=== PATIENT | female | born 1955 | race Caucasian/White ===

== ENCOUNTER 2019-09-10 16:15 | Emergency (ER) | payer BC, SELFPAY ==
--- NOTE | ~2019-09-10 | XR_ITS ---
EXAMINATION: XR chest 2V DATE: 09/10/2019 16:59 INDICATION: Shortness of breath. Chest tightness and dizziness. TECHNIQUE: frontal and lateral views of the chest were obtained. COMPARISON: Chest radiograph dated 01/31/2005 FINDINGS: Elevation of the left hemidiaphragm. No focal airspace opacities, pulmonary edema, pleural effusion o r pneumothorax. Cardiomediastinal silhouette is normal. Chronic midthoracic compression fracture with 20% anterior vertebral body height loss. IMPRESSION: 1. No acute cardiopulmonary disease. Reviewed, dictated and finalized at location A.
[2019-09-10 16:20] VITALS: BP 130/71; PULSE 86; RESP 16; TEMP 36.7; O2SAT 100
--- NOTE | 2019-09-10 16:30 | PC.NURSE ---
During assessment patient stated that she Chest Tightness but denied that it was painful
--- NOTE | 2019-09-10 16:43 | ED.SOB ---
HPI - SOB/Dyspnea General Chief Complaint: Upper Respiratory Infection Stated Complaint: Shortness of breat/weezing Time Seen by Provider: 09/10/19 16:35 Source: patient and RN notes reviewed Mode of arrival: ambulatory Limitations: no limitations History of Present Illness HPI Narrative: Patient presents today complaining of dizziness, shortness of breath with mild productive cough, and complaining that, my lungs feel heavy. Yesterday, patient was at a wedding in a barn in [place] and states that shortness of breath symptoms and cough began at 0130 this morning and she believes this is related. She sat in a steamy shower and had hot wet towels on her chest last night and states this helped with symptoms slightly, enough that she was able to go back to sleep. Reports that every 1 to 2 years patient does experience symptoms similar to this, due to allergic asthma. She takes Claritin-D for her seasonal allergies. She denies any chest pain or abdominal pain. Denies fever or recent illness. Denies any cardiac history. Denies leg pain or swelling. MD elicited complaint: shortness of breath Related Data Home Medications Medication Instructions Recorded Confirmed Imitrex 09/10/19 lisinopril 09/10/19 Allergies Allergy/AdvReac Type Severity Reaction Status Date / Time Penicillins Allergy Mild UNSURE Verified 09/10/19 16:36 amoxicillin AdvReac Intermediate Nausea and Verified 09/10/19 16:36 Vomiting clavulanic acid AdvReac Intermediate Nausea and Verified 09/10/19 16:36 Vomiting etodolac AdvReac Intermediate Nausea and Verified 09/10/19 16:36 Vomiting Review of Systems Review of Systems: Narrative: CONSTITUTIONAL: Denies body aches, fever, chills, or sweats. EYES: Denies visual changes, redness, or discharge. ENT: Denies rhinorrhea, congestion, sore throat, or otalgia. CARDIOVASCULAR: Denies chest pain, palpitations, or edema. RESPIRATORY: + Shortness of breath, occasional productive cough, chest heaviness GASTROINTESTINAL: Denies abdominal pain, nausea, vomiting, or diarrhea. GENITOURINARY: Denies dysuria or hematuria. SKIN: Denies rash, itching, or wounds. MUSCULOSKELETAL: Denies back pain, joint pain, or myalgia. NEUROLOGIC: Denies headache, numbness, tingling, or weakness.+dizziness PSYCH: Denies depression or anxiety. PMFSH Social History Social History Gender identity (if verbalized by the patient): Female Comments At time of signature, I have reviewed and agree with nursing past medical, surgical, social and family history unless otherwise noted. Please see nursing chart for further information. There is no relevant family history pertinent to the presenting complaint Exam Narrative: Exam Narrative: GENERAL: Mildly ill-appearing, well-nourished. HEAD: Normocephalic, atraumatic. EYES: EOMI. No redness or drainage. Conjunctivae normal. ENT: Mucous membranes pink and moist. NECK: Normal AROM. Supple. No lymphadenopathy. CHEST: Obviously short of breath. Diminished in bilateral bases, but no wheezing or rhonchi noted. Cannot speak in complete sentences. Chest is nontender. HEART: Regular rate and rhythm. No murmur appreciated. Normal peripheral pulses. ABDOMEN: Soft, nontender, nondistended, normal active bowel sounds. MUSCULOSKELETAL: No bony tenderness. EXTREMITIES: Normal range of motion. No edema. SKIN: Warm, dry, no rash. Capillary refill normal. Normal skin turgor. NEURO: No focal deficits. Alert and oriented x3. Gait steady. PSYCH: Normal affect. No signs of depression or anxiety. Course Course Emergency Course: Patient refuses transfer to the ER and will sign out AMA. She is AOx4, does not seem impaired or intoxicated and she is able to make her own medical decisions. I did discuss importance of ER transfer for further evaluation of her current symptoms. States she would like to discuss with and call her PCP for advice. Vital Signs Vital signs: Vital Signs
--- NOTE | 2019-09-10 16:50 | ECG_ITS ---
Measurements Intervals [place] Rate: 78 P: 42 UT: 169 QRS: 3 QRSD: 94 T: 34 QT: 396 QTc: 454 Interpretive Statements SINUS RHYTHM NORMAL ECG Electronically Signed On 09-11-2019 7:35:58 CDT by Michael Lehman D.O.
== END 2019-09-10 17:17 | disposition left against medical advice (07) ==
PROVIDERS: Emergency Provider Nurse Practitioner; PCP Internal Medicine Infectious Disease
DX: R06.02 Shortness of breath (principal); R42 Dizziness and giddiness
CPT/HCPCS: 71046; 93005; 99203; G0463

== ENCOUNTER 2021-07-13 10:16 | Emergency (ER) | payer OTHER, SELFPAY ==
[2021-07-13 10:25] VITALS: BP 162/80; PULSE 80; RESP 16; TEMP 36.4; O2SAT 100
--- NOTE | 2021-07-13 10:40 | ED.DENTAL ---
HPI - Dental/Oral General Chief complaint: Dental/Oral Stated complaint: Right Jaw pain Time Seen by Provider: 07/13/21 10:41 Source: patient Mode of arrival: ambulatory Limitations: no limitations History of Present Illness HPI Narrative: Annabel Hatch is a 66 yo female with PMH of HTN, migraines, who comes with R jaw swelling x -3 days with pain in jaw- unsure if dental Location: Tooth # (30) Related Data Home Medications Medication Instructions Recorded Confirmed Imitrex 09/10/19 lisinopril 09/10/19 Allergies Allergy/AdvReac Type Severity Reaction Status Date / Time Penicillins Allergy Mild UNSURE Verified 09/10/19 16:36 amoxicillin AdvReac Intermediate Nausea and Verified 09/10/19 16:36 Vomiting clavulanic acid AdvReac Intermediate Nausea and Verified 09/10/19 16:36 Vomiting etodolac AdvReac Intermediate Nausea and Verified 09/10/19 16:36 Vomiting Review of Systems Review of Systems: CONSTITUTIONAL: Denies fever, chills, sweats. EYES: Denies visual changes, redness, discharge. ENT: Denies rhinorrhea, congestion, sore throat, otalgia. CARDIOVASCULAR: Denies chest pain, palpitations, edema. Mouth: Right jaw swelling with pain in the is not clearly localized RESPIRATORY: Denies dyspnea, wheezing, cough GASTROINTESTINAL: Denies abdominal pain, nausea, vomiting, diarrhea. GENITOURINARY: Denies dysuria, hematuria, abnormal discharge SKIN: Denies rash or itching. NEUROLOGIC: Denies numbness, or focal weakness. PSYCHIATRIC: Denies anxiety or depression. PMFSH Past Medical History Medical History HTN (hypertension) Migraine Social History Social History (Updated 07/13/21 @ 10:48 by Emilie Cazares CNP) Smoking status: Former smoker Alcohol intake: current Gender identity (if verbalized by the patient): Female Comments At time of signature, I agree with nursing past medical, surgical, social and family history. There is no relevant family history pertinent to the presenting complaint. Exam Narrative: GENERAL: This is a well-nourished, well-developed patient, in moderate distress. HEAD: normocephalic, atraumatic. EYES: Sclera clear/white. Vision is grossly intact. EARS: External ears normal. Hearing grossly intact. NOSE: External nose normal without nasal discharge, nares without redness, no rhinorrhea. THROAT: Mucous membranes moist, posterior pharynx pink; fair amount of swelling on the right cheek when examined by palpation pain appears to be around tooth 30 NECK: Neck supple, non-tender CARDIOVASCULAR: Regular rate and rhythm without murmurs, gallops, or rubs. RESPIRATORY: Clear to auscultation. Breath sounds equal bilaterally. No wheezes, rales, or rhonchi. GASTROINTESTINAL: Abdomen soft, non-tender, SKIN: warm, intact with no suspicious lesions or rash, good texture and turgor. NEURO: awake, alert, and oriented to person, place and time. There were no obvious focal neurologic abnormalities. Steady gait EXTREMITIES: Normal range of motion. BACK: Nontender without deformity Course Course Emergency Course: Patient comes with facial swelling and pain to right jaw Started on Pen-Vee K, steroids, Tylenol 3- Level of Care: Express Care Visit Vital Signs Vital signs: Vital Signs Temperature 97.5 F L 07/13/21 10:25 Pulse Rate 80 07/13/21 10:25 Respiratory Rate 16 07/13/21 10:25 Blood Pressure 162/80 H 07/13/21 10:25 Pulse Oximetry 100 07/13/21 10:25 Temperature 97.5 F L 07/13/21 10:25 Pulse Rate 80 07/13/21 10:25 Respiratory Rate 16 07/13/21 10:25 Blood Pressure 162/80 H 07/13/21 10:25 Pulse Oximetry 100 07/13/21 10:25 MDM - Dental/Oral Differential Diagnosis Differential diagnosis: Likely dental caries, toothache and dental abscess Critical Care Time Critical Care Time Critical Care Time: No Discharge Plan Discharge Clinical Impression: Jaw swelling, Dental abscess
== END 2021-07-13 11:02 | disposition home or self-care (01) ==
PROVIDERS: Emergency Provider Nurse Practitioner; PCP Internal Medicine Infectious Disease
DX: K04.7 Periapical abscess without sinus (principal); I10 Essential (primary) hypertension; Z87.891 Personal history of nicotine dependence
CPT/HCPCS: 99213; G0463

== ENCOUNTER 2021-11-18 16:29 | Outpatient (CLI) | payer OTHER, SELFPAY ==
--- NOTE | ~2021-11-18 | MR_ITS ---
EXAMINATION: MR shoulder LT wo con DATE: 11/18/2021 17:12 INDICATION: Left shoulder pain. TECHNIQUE: Magnetic resonance imaging (MRI) of the left shoulder was performed without intravenous co ntrast. Sequences included axial PD-weighted FS FSE, coronal oblique PD-weighted FS FSE and T2-weight ed FS FSE, and sagittal oblique T2-weighted FS FSE and T1-weighted FSE. COMPARISON: None. FINDINGS: Coracoacromial arch: The acromion undersurface is curved in morphology (type II). There is moderate acromioclavicular join t osteoarthritis including inferiorly directed osteophytes. There is mild subacromial/subdeltoid burs itis. Rotator cuff: There is mild supraspinatus tendinopathy. Infraspinatus and teres minor tendon is normal. There is mi ld subscapularis tendinopathy. No tear. There is no asymmetric fatty atrophy of the rotator cuff musc le bellies. Biceps tendon and glenoid labrum: Biceps tendon is in bicipital groove. Intra-articular biceps tendon is normal. The glenoid labrum is normal. Fluid: There is a small glenohumeral joint effusion. Bones/cartilage: There is partial-thickness cartilage loss of glenoid and humeral head. There is a subchondral cyst in superior glenoid. IMPRESSION: 1. Mild glenohumeral joint chondrosis. 2. Mild rotator cuff tendinopathy. No tear. 3. Moderate acromioclavicular joint osteoarthritis. 4. Small glenohumeral joint effusion. 5. Mild subacromial/subdeltoid bursitis. Reviewed, dictated and finalized at location A.
== END 2021-11-18 16:30 | disposition home or self-care (01) ==
PROVIDERS: PCP Internal Medicine Infectious Disease; Visit Provider Orthopaedic Surgery
DX: M19.012 Primary osteoarthritis, left shoulder (principal); M75.52 Bursitis of left shoulder; M25.412 Effusion, left shoulder
CPT/HCPCS: 73221

== ENCOUNTER 2021-12-08 01:03 | Day surgery (SDC) | payer OTHER, SELFPAY ==
--- NOTE | 2021-12-03 12:57 | PC.NURSE ---
Report to the Outpatient Waiting Room, entrance under the green pavilion located off [facility], at time 1000 on date __12/08/21 . OR Time: _1200 . - You and your visitor will be asked to self-screen and do not enter if you have any COVID symptoms. - Only one visitor and NO children visitors are allowed at this time. - The patient visitor is requested to leave or wait in car when not with patient due to restrictions. - A mask is required within the hospital. Patients may have clear liquids (water, carbonated beverages, clear teas, apple juice) until 3 hours prior to surgery with a maximum of 20 ounces. - No food from midnight until time of surgery - Infants may have breast milk until 4 hours before surgery, infant formula 6 hours prior to surgery. - Children will be allowed to drink immediately following surgery. If applicable, please bring a bottle or sippy cup to assist with drinking. Juice, water, soda, and popsicles are readily available. For infants on formula, please bring formula the day of surgery. Pacifiers are allowed. Take the following medications with a SIP of water the morning of surgery: NONE Medications to discontinue per physician NAPROXEN 7 DAYS PRE OP/ ALL VITAMINS AND SUPPLEMENTS 3 DAYS PRE OP Date to take last dose__11/30/21 NAPROXEN VIT AND SUPP 12/04/21 Please no make-up, nail estonian, hairspray, perfume, deodorant, or body powder the day of surgery. No jewelry (including any body piercings) or valuables the day of surgery, leave them at home. Please take a shower or bath the night before, or the morning of, surgery with an antibacterial soap. Wear comfortable, loose fitting clothing. Children are encouraged to wear pajamas. - Jewelry must be removed prior to entering the operating room. Rings and piercings that are not removed may be cut off. - The hospital will not accept responsibility for valuables. - Please leave all valuables, including medications, at home the day of surgery. If you are going home after surgery, a licensed bulk truck driver must drive you home. - NO public transportation without another adult. - We recommend that an adult stay with you for 24 hours following discharge. - We also recommend that you do not drive, make important decision, drink alcoholic beverages, or take any drugs that were not prescribed by your health care provider for at least 24 hours after your discharge time. For Pediatric surgeries, we recommend two adults accompany the child home (only one inside the building at this time). Follow any additional instructions given to you from your surgeon. If you or anyone in your household have experienced Covid symptoms in the past week, please notify your surgeon or the nurse liaison at the phone number below for possible testing. Telephone instructions given to ___PATIENT and asked if any additional questions and then verbalized understanding. Patient advised to call surgeon office or pre surgery nurse liaison [phone] if any additional questions.
[2021-12-03 13:05] VITALS: BMI 31.1
[2021-12-08] VITALS (10 sets, daily range): BP systolic 130–160; BP diastolic 67–99; PULSE 65–91; RESP 14–20; TEMP 36.1–36.7; O2SAT 96–100
--- NOTE | 2021-12-08 10:27 | WPDHPUPDATE1 ---
History and Physical Update Update Date/Time: 12/08/21 10:27 History and Physical has been reviewed, including an updated exam of the patient. There are NO changes in the patient's condition. Risks, benefits, and alternatives have been discussed and questions answered. Patient agrees to proceed with procedure.
--- NOTE | 2021-12-08 10:49 | P.PNAN_ITS ---
Anes - Initial Pre Proc Eval Procedure: Operation Date: 12/08/21 12:00 Proposed Procedures p Left Shoulder Arthroscopic Subacromial Decompression - Amaury Khan MD Date/Time: 12/08/21 10:49 Surgeon: Amaury Khan MD Pre Op Diagnosis: Impingement Syndrome Lt Shoulder Patient Data Age: 66 Gender: F Height: 1.68 m Weight: 87.55 kg Allergies Allergy/AdvReac Type Severity Reaction Status Date / Time Penicillins Allergy Mild UNSURE Verified 12/03/21 12:34 amoxicillin AdvReac Intermediate Nausea and Verified 12/03/21 12:34 Vomiting clavulanic acid AdvReac Intermediate Nausea and Verified 12/03/21 12:34 Vomiting etodolac AdvReac Intermediate Hives Verified 12/03/21 12:35 Home Medications Medication Instructions Recorded Confirmed Type Imitrex 100 mg PO PRN PRN Migraine Headache 09/10/19 12/03/21 History lisinopril 30 mg PO DAILY 09/10/19 12/03/21 History triamterene 37.5 1 tablet PO PRN PRN SWELLING 09/10/21 12/03/21 History mg-hydrochlorothiazide 25 mg tablet biotin 5,000 mcg disintegrating 5,000 mcg PO DAILY 12/03/21 12/03/21 History tablet desloratadine-pseudoephedrine ER 1 tablet PO Q12H PRN Allergy 12/03/21 12/03/21 History 2.5 mg-120 mg tab,ext.release mp Symptoms 12hr (Clarinex-D 12 HOUR) magnesium 500 mg tablet 500 mg PO DAILY 12/03/21 12/03/21 History naproxen 500 mg tablet 500 mg PO PRN PRN Pain 12/03/21 12/03/21 History Patient hx anesthesia problems: post op nausea/vomiting Family hx anesthesia problems: none Results Review: All pre-operative results and documents have been reviewed as part of the pre- operative evaluation. [facility] Past Medical History Medical History Arthritis Asthma History of stress test (~07/2014) HTN (hypertension) Migraine Surgical History Surgical History History of carpal tunnel surgery of left wrist (~2019) History of carpal tunnel surgery of right wrist (~2018) History of knee surgery (~06/18/08) Patella ellrgraph History of partial hysterectomy Social History Social History Years smoked: 35 Smoking status: Former smoker Tobacco type: cigarettes Smoking end date: 04/12/09 Alcohol intake: current Living arrangements: with family Gender identity (if verbalized by the patient): Female Spiritual care concerns: No Anes - Eval Final PreProcedure Day of Procedure 12/08/21 10:49 Patient weight: obese Heart: regular rate and rhythm Lungs: decreased breath sounds Airway: Mallampati scale class II Neurological: alert and oriented Last oral intake: >/= 8 hours ASA classification: III Emergent: no Anesthetic plan: proceed Anesthesia type and monitoring: general ETT and standard monitoring Results Review: All pre-operative results and documents have been reviewed as part of the pre- operative evaluation. Informed Consent: The patient's anesthetic plan and its attendant risks and benefits were discussed with the patient/family/POA. Questions were solicited and answers provided to the satisfaction of the patient/family/POA.
[2021-12-08] MEDS: ACETAMINOPHEN 500 MG TABLET 1000 MG PO (11:00)
[2021-12-08] MEDS: LACTATED RINGERS 1,000 ML 30 ML IV CONT ×2 (11:08→13:48)
[2021-12-08] MEDS: SCOPOLAMINE 1.5 MG PATCH TRANSDERM (11:22)
[2021-12-08] MEDS: ceFAZolin 2 GM/D5W 50 ML 2 GM/50 ML BAG IVPB (12:15)
[2021-12-08] MEDS: BUPIVACAINE/EPINEPHRINE 0.25% 50 ML VIAL 30 ML INFILTRATE (12:59)
[2021-12-08] MEDS: fentaNYL CITRATE INJ (*CRX) 100 MCG/2 ML VIAL 25 MCG IV PUSH ×2 (14:23→14:36)
--- NOTE | 2021-12-08 14:25 | P.OP_ITS ---
Procedure Note - Detailed Date of Procedure 12/08/21 Pre-op Diagnosis Impingement Syndrome Lt Shoulder Post-op Diagnosis Other (1. Impingement syndrome left shoulder 2. Degenerative SLAP lesion ) Procedure Performed Left shoulder 1. Arthroscopic superior labral debridement 2. Arthroscopic subacromial decompression Surgeon Amaury Khan MD Sewing Machine Mechanic Karlene Arciniega PA-C Anesthesia General and Regional ( interscalene block) Findings Significant natural laxity of the joint capsule. Subacromial impingement findings without rotator cuff tear. Subtle fraying at the superior humerus and superolateral labrum suggests internal impingement. The biceps anchor itself and biceps tendon appeared very healthy and stable. Description of Procedure Preoperative antibiotics were given. An interscalene block was administered in the preoperative area. The patient was bought brought to the operating room. A general anesthetic was administered. The patient was carefully positioned in the beach chair position. The head and neck were carefully positioned. The non operative extremity was also carefully positioned. The shoulder was prepped and draped in the usual sterile fashion. Examination was performed. The shoulder felt quite loose. Not grossly unstable. Posterior and anterior arthroscopic portals were established. Inflow achieved with the arthroscopic pump using saline and epinephrine. The glenohumeral joint was carefully inspected. The capsule was slightly patulous. Cartilage appeared normal except for mild scuffing superiorly on the humerus. There was significant fraying of the superior anterior labrum and SLAP area. The labral attachment and biceps were otherwise healthy. The labrum was debrided carefully with the arthroscopic shaver. The radiofrequency probe was also used to stabilize the tissue. The subscapularis was normal. Articular rotator cuff appeared normal. Attention was turned to the subacromial space. A complete bursectomy was performed. The rotator cuff appeared slightly scuffed. The bursa was a bit thickened and there was impingement evidence on the undersurface of the acromion with some frayed tissue there and at the CA ligament. The cuff was otherwise very healthy. Acromioplasty was performed with the arthroscopic bur. Care was taken to assess the flatness and adequate acromioplasty from both the posterior and lateral portal. The arthroscopic instruments were removed. The wounds were closed with 3-0 Monocryl subcuticular suture and steri strips. There were no complications. A sling was applied and the patient brought to the recovery room. Physician social service assistant, Karlene Arciniega PA-C, required for surgery; including patient positioning, draping, arthroscopic camera operation, maintaining instrument position, wound closure, and dressing and sling placement. Estimated Blood Loss -10.0 Pathology None sent Complications No immediate complications Condition Stable Disposition PACU [facility] Billing Surgery - Charge Forward: Surgery Billing
[2021-12-08] MEDS: oxyCODONE HCL (*CRX) 5 MG TAB IR PO (15:48)
[2021-12-08] MEDS: ONDANSETRON HCL ODT 4 MG TABLET PO (16:36)
== END 2021-12-08 17:10 | disposition home or self-care (01) ==
PROVIDERS: PCP Internal Medicine Infectious Disease; Visit Provider Orthopaedic Surgery
PROC: (CPT 29805; principal; 2021-12-08 12:00)
DX: M75.42 Impingement syndrome of left shoulder (principal); M75.82 Other shoulder lesions, left shoulder; I10 Essential (primary) hypertension; M19.90 Unspecified osteoarthritis, unspecified site; Z87.891 Personal history of nicotine dependence; E66.9 Obesity, unspecified; Z68.30 Body mass index [BMI] 30.0-30.9, adult
CPT/HCPCS: 29822; A9270; J0690; J1100; J2250; J2405; J2704; J3010; J7120

== ENCOUNTER 2023-08-16 14:22 | Outpatient (CLI) | payer MEDICARE, SELFPAY ==
--- NOTE | ~2023-08-16 | XR_ITS ---
EXAM: XR knee RT min 4V DATE: 08/16/2023 14:44 HISTORY: M25.561 - Pain in right knee NON INJ . COMPARISON: None available. FINDINGS: Decreased mineralization. No fracture or dislocation. No lytic or blastic lesion. Status p ost ACL repair. Moderate medial joint space narrowing. Severe lateral joint space narrowing during we ightbearing. Mild tricompartmental osteophytosis. Moderate volume joint fluid. No erosion or perioste al change. Soft tissues within normal limits. IMPRESSION: Osteopenia. Tricompartmental osteoarthritis, severe in the lateral compartment. Moderate joint effusion. Reviewed, dictated and finalized at location K.
== END 2023-08-16 14:23 | disposition home or self-care (01) ==
LOC: ANHIMG 14:26
PROVIDERS: PCP Internal Medicine Infectious Disease; Visit Provider Physician Assistant Surgical
DX: M85.861 Other specified disorders of bone density and structure, right lower leg (principal); M17.11 Unilateral primary osteoarthritis, right knee; M25.461 Effusion, right knee
CPT/HCPCS: 73564

== ENCOUNTER 2023-11-08 11:33 | Outpatient (CLI) | payer MEDICARE, SELFPAY ==
--- NOTE | 2023-11-08 11:57 | ECG_ITS ---
Test Date: 2023-11-08 12:10:17 Measurements Intervals [place] Rate: 77 P: 30 MI: 170 QRS: -28 QRSD: 138 T: 15 QT: 404 QTc: 459 Interpretive Statements SINUS RHYTHM RIGHT BUNDLE BRANCH BLOCK INFERIOR INFARCT, AGE INDETERMINATE ABNORMAL ECG No previous ECG available for comparison Electronically Signed On 11-08-2023 12:52:48 CDT by Michael Lehman D.O.
[2023-11-08 12:00] LABS: Hematocrit 44.1 % (37.0-47.0)
[2023-11-08 12:21] LABS: Albumin Level 4.5 g/dL (3.5-5.1); Estimated Glomerular Filt Rate > 60
== END 2023-11-08 11:34 | disposition home or self-care (01) ==
PROVIDERS: PCP Internal Medicine Infectious Disease; Visit Provider Orthopaedic Surgery
DX: Z01.818 Encounter for other preprocedural examination (principal); M17.11 Unilateral primary osteoarthritis, right knee; I10 Essential (primary) hypertension; I45.10 Unspecified right bundle-branch block; R94.31 Abnormal electrocardiogram [ECG] [EKG]
CPT/HCPCS: 36415; 82040; 82565; 85014; 85018; 93005

== ENCOUNTER 2023-11-23 14:27 | Outpatient (CLI) | payer MEDICARE, SELFPAY ==
--- NOTE | ~2023-11-23 | XR_ITS ---
EXAM: XR knee RT min 4V DATE: 11/23/2023 14:52 HISTORY: CHRONICRT KNEE PAIN, HX SUREGRY, HX FRACTURE X 3-4 YEARS AGO . COMPARISON: 08/16/2023. FINDINGS: Decreased mineralization. No fracture or dislocation. No lytic or blastic lesion. Mild med ial and severe lateral joint space narrowing. Mild tricompartmental osteophytosis. Moderate volume nancy int fluid. Status post ACL repair. No erosion or periosteal change. Soft tissues within normal limits . IMPRESSION: Osteopenia. Tricompartmental right knee osteoarthritis, severe in the lateral compartment . Moderate right knee joint effusion. Reviewed, dictated and finalized at location K. IMPRESSION: Osteopenia. Tricompartmental right knee osteoarthritis, severe in t he lateral compartment. Moderate right knee joint effusion.
== END 2023-11-23 14:28 | disposition home or self-care (01) ==
PROVIDERS: PCP Internal Medicine Infectious Disease; Visit Provider Orthopaedic Surgery
DX: M17.11 Unilateral primary osteoarthritis, right knee (principal); M85.861 Other specified disorders of bone density and structure, right lower leg
CPT/HCPCS: 73564

== ENCOUNTER 2024-01-05 09:33 | Outpatient (CLI) | payer MEDICARE, SELFPAY ==
[2024-01-05 12:04] LABS: Basophils Percent Auto 0.6 % (0.2-1.2); Eosinophils Absolute Auto 0.2 K/mm3 (0-0.3); Eosinophils Percent Auto 2.8 % (0-4.4); Hemoglobin 14.3 g/dL (12.0-15.0); Immature Granulocyte Absolute 0.02 K/mm3 (0.00-0.031); Immature Granulocyte Percent A 0.3 % (0-0.5); Lymphocytes Absolute Auto 1.35 K/mm3 (0.9-3.2); Lymphocytes Percent Auto 19.2 % (18.3-44.2); Mean Corpuscular Hemoglobin 30.2 pg (26-34); Mean Corpuscular Volume 88.8 fl (80-100); Mean Platelet Volume 11.7 fl (7.4-10.4); Monocytes Absolute Auto 0.6 K/mm3 (0.1-0.6); Monocytes Percent Auto 8.5 % (2.6-8.5); Neutrophils Absolute Auto 4.8 K/mm3 (1.3-6.7); Neutrophils Percent Auto 68.6 % (45.5-73.1); Platelet Count Result 219 k/mm3 (150-375); Red Blood Count 4.73 M/mm3 (4.2-5.4); Red Cell Distribution Width 13.1 % (11.5-14.5)
[2024-01-05 12:11] LABS: Albumin Level 4.3 g/dL (3.5-5.1)
[2024-01-05 12:14] LABS: Anion Gap 8 mmol/L (4-12); Blood Urea Nitrogen 18 mg/dL (7-17); Calcium 9.2 mg/dL (8.4-10.2); Carbon Dioxide 27 mmol/L (22-30); Chloride 102 mmol/L (98-107); Estimated Glomerular Filt Rate > 60; Glucose 112 mg/dL (65-110); Potassium 4.5 mmol/L (3.4-5.0); Sodium 137 mmol/L (137-145)
[2024-01-05 12:21] LABS: Urine Cotinine NEGATIVE
[2024-01-05 13:19] LABS: Hemoglobin A1C 6.1 % (<5.7); MRSA (PCR) NOT DETECTED (NOT DETECTE)
== END 2024-01-05 09:34 | disposition home or self-care (01) ==
LOC: ANHSURGERY 09:37
PROVIDERS: Anesthesiology; PCP Internal Medicine Infectious Disease; Visit Provider Orthopaedic Surgery
DX: Z01.818 Encounter for other preprocedural examination (principal); M17.11 Unilateral primary osteoarthritis, right knee; Z51.81 Encounter for therapeutic drug level monitoring
CPT/HCPCS: 36415; 80048; 80307; 82040; 83036; 85025; 87641

== ENCOUNTER 2024-01-31 01:35 | Day surgery (SDC) | payer MEDICARE, SELFPAY ==
--- NOTE | 2024-01-05 09:37 | PC.NURSE ---
Addendum entered by Tricia Nicholas RN 01/05/24 11:06: TYPO FOR DATE TO HOLD WEGOVY- SHOULD READ LAST DOSE 01/20/24. Original Note: Report to the Outpatient Waiting Room, entrance under the green pavilion located off [facility], at time ___10:00AM____ on date ___01/31/24____. Planned Procedure Time: ___12:00PM .? Time changes happen often and if your time is changed the preop area will call you the afternoon before. - You and your visitor will be asked to self-screen and do not enter if you have any COVID symptoms. Please call surgeon if you need to reschedule. - A mask is optional within the hospital at this time. Patients may have clear liquids (water, carbonated beverages, clear teas, apple juice) until 3 hours prior to surgery with a maximum of 20 ounces. - No food from midnight until time of surgery and no smoking. Take only the following medications with a SIP of water on the morning of surgery: NONE. (MAY USE ALBUTEROL INHALER NEEDED) DO NOT STOP ANY OF YOUR OTHER PRESCRIPTION MEDICATIONS PRIOR TO SURGERY EXCEPT THE FOLLOWING Medications to discontinue per physician ____HOLD ALL VITAMINS/SUPPLEMENTS 7 DAYS PRE-OP PER DR KRUEGER-LAST DOSE 01/23/24. HOLD WEGOVY FOR WEIGHT LOSS 10 DAYS PRE-OP PER ANESTHESIA- LAST DOSE . Please no make-up, nail chinese, hairspray, perfume, deodorant, or body powder the day of surgery.? No jewelry (including any body piercings) or valuables the day of surgery, leave them at home.? Please take a shower or bath the night before, or the morning of, surgery with an antibacterial soap.? Wear comfortable, loose fitting clothing.? - Jewelry must be removed prior to entering the operating room.? Rings and piercings that are not removed may be cut off. - The hospital will not accept responsibility for valuables.? - Please leave all valuables, including medications, at home the day of surgery. If you are going home after surgery, a licensed local owner operator truck driver must drive you home.? - NO public transportation without another adult if you receive anesthesia. - We recommend that an adult stay with you for 24 hours following discharge. - We also recommend that you do not drive, make important decision, drink alcoholic beverages, or take any drugs that were not prescribed by your health care provider for at least 24 hours after your discharge time. Follow any additional instructions given to you from your surgeon. Telephone instructions given to ___PATIENT and asked if any additional questions and then verbalized understanding. Patient advised to call surgeon office or pre surgery nurse liaison [phone] if any additional questions.
[2024-01-05 10:05] VITALS: BP 153/82; PULSE 78; RESP 16; TEMP 36.9; O2SAT 97; BMI 34.0
[2024-01-31] VITALS (13 sets, daily range): BP systolic 148–176; BP diastolic 69–99; PULSE 79–108; RESP 10–18; TEMP 35.9–36.8; O2SAT 93–100
--- NOTE | ~2024-01-31 | XR_ITS ---
EXAMINATION: [id number] DATE: 01/31/2024 15:00 CDT INDICATION: Right total knee arthroplasty TECHNIQUE: 2 views right knee FINDINGS: There is a right total knee arthroplasty in expected position. Subcutaneous gas with fluid and air in the joint are consistent with recent surgery. No evidence of periprosthetic fracture. IMPRESSION: 1. Recent right total knee arthroplasty. Reviewed, dictated and finalized at location B.
--- NOTE | 2024-01-31 09:31 | WPDHPUPDATE1 ---
History and Physical Update Update Date/Time: 01/31/24 09:31 History and Physical has been reviewed, including an updated exam of the patient. There are NO changes in the patient's condition. Risks, benefits, and alternatives have been discussed and questions answered. Patient agrees to proceed with procedure.
[2024-01-31] MEDS: ACETAMINOPHEN 500 MG TABLET 1000 MG PO (10:40)
[2024-01-31] MEDS: LACTATED RINGERS 1,000 ML 30 ML IV CONT ×2 (10:50→14:16)
[2024-01-31] MEDS: TRANEXAMIC ACID 1,000MG/ISO100 1,000 MG/100 ML BAG 200 MG IVPB (11:16)
--- NOTE | 2024-01-31 11:24 | WPDANESEPPF ---
Anes - Initial Pre Proc Eval Procedure: Operation Date: 01/31/24 12:00 Proposed Procedures p Right Total Knee Arthroplasty - Amaury Khan MD Date/Time: 01/31/24 11:24 Surgeon: Amaury Khan MD Pre Op Diagnosis: Prim OA Rt Knee Patient Data Age: 68 Gender: F Height: 1.66 m Weight: 91.9 kg Last Vital Signs Temp 97.4 F L 01/31/24 10:05 Pulse 79 01/31/24 10:05 Resp 18 01/31/24 10:05 BP 176/87 H 01/31/24 10:05 Pulse Ox 100 01/31/24 10:05 O2 Del Method Room Air 01/31/24 10:05 Allergies Allergy/AdvReac Type Severity Reaction Status Date / Time etodolac Allergy Intermediate Hives Verified 01/05/24 09:44 clavulanic acid AdvReac Intermediate Nausea and Verified 01/05/24 09:44 Vomiting Penicillins AdvReac Mild NAUSEA/VOMI Verified 01/05/24 09:44 TING Home Medications Medication Instructions Recorded Confirmed Type biotin 5,000 mcg disintegrating 5,000 mcg PO DAILY 12/03/21 01/05/24 History tablet desloratadine-pseudoephedrine ER 1 tablet PO Q12H PRN Allergy 12/03/21 01/05/24 History 2.5 mg-120 mg tab,ext.release mp Symptoms 12hr (Clarinex-D 12 HOUR) losartan 50 mg tablet 50 mg PO DAILY 08/18/23 01/05/24 History pantoprazole 40 mg tablet,delayed 40 mg PO QAM 08/18/23 01/05/24 History release albuterol (refill) 90 90 mcg inhalation Q4-6H PRN 01/05/24 01/05/24 History mcg/actuation aerosol inhaler Shortness Of Breath Or Wheezing azelastine 137 mcg (0.1 %) nasal 1 spray intranasal BID PRN Nasal 01/05/24 01/05/24 History spray Congestion cyanocobalamin (vitamin B-12) 1,000 mcg IM MONTHLY 01/05/24 01/05/24 History 1,000 mcg/mL injection solution cyclobenzaprine 10 mg tablet 10 mg PO HS PRN Muscle Spasm 01/05/24 01/05/24 History ergocalciferol (vitamin D2) 1,250 1,250 mcg PO WEEKLY 01/05/24 01/05/24 History mcg (50,000 unit) capsule levocetirizine 5 mg tablet 5 mg PO DAILY PRN Sinus Symptoms 01/05/24 01/05/24 History magnesium 500 mg tablet 30 mg PO HS 01/05/24 01/05/24 History sumatriptan succinate 100 mg tablet 100 mg PO DIRECTED 01/05/24 01/05/24 History triamterene 37.5 1 cap PO DAILY PRN Edema 01/05/24 01/05/24 History mg-hydrochlorothiazide 25 mg capsule zoledronic acid 4 mg intravenous 4 mg IV [id number] 01/05/24 01/05/24 History solution aspirin 81 mg tablet,delayed 81 mg PO BID 14 days #28 tabs 01/31/24 Rx release meloxicam 15 mg tablet 15 mg PO DAILY #30 tabs 01/31/24 Rx oxycodone-acetaminophen 5 mg-325 1 - 2 tablet PO Q4-6H PRN pain 7 01/31/24 Rx mg tablet days #30 tabs prednisone 5 mg tablet 5 mg PO DAILY 3 weeks #21 tabs 01/31/24 Rx Laboratory Tests 01/31/24 10:38 Blood Type Pending Antibody Screen Pending Patient hx anesthesia problems: none Family hx anesthesia problems: none Results Review: All pre-operative results and documents have been reviewed as part of the pre-operative evaluation. [facility] Past Medical History Medical History Arthritis Asthma History of breast cancer History of patellar fracture (~2015) Right History of stress test (~07/2014) HTN (hypertension) Migraine Surgical History Surgical History History of carpal tunnel surgery of left wrist (~2019) History of carpal tunnel surgery of right wrist (~2018) History of knee surgery (~06/18/08) Patella allograft History of partial hysterectomy Social History Social History Smoking packs per day: 0.5 Smoking cigarettes per day: 10.0 Years smoked: 36 Smoking pack-years: 18.00 Smoking status: Former smoker Tobacco type: cigarettes Smoking end date: 10/10/09 Alcohol intake: current Substance use: never Do You Feel Safe in your Home?: Yes Lack of Transportation: No Lack of Food: Never True Current Housing:
[2024-01-31] MEDS: ceFAZolin 2 GM/D5W 50 ML 2 GM/50 ML BAG IVPB ×2 (12:23→20:23)
[2024-01-31] MEDS: SODIUM CHLORIDE 0.9% IV 38.7 ML, MORPHINE SULFATE INJ (*CRX) 2 MG, ROPivacaine HCL 1% 2... INFILTRATE (12:56)
[2024-01-31] MEDS: GENTAMICIN BONE CEMENT REFOBACIN 1 EACH TOPICAL (13:24)
[2024-01-31] MEDS: TRANEXAMIC ACID 1,000 MG/10 ML AMPUL 1000 MG IV PUSH (14:04)
[2024-01-31] MEDS: SCOPOLAMINE 1 MG PATCH 1 PATCH TRANSDERM (14:16)
--- NOTE | 2024-01-31 14:22 | W.PM.PROC2 ---
Procedure Note - Detailed Date of Procedure 01/31/24 Pre-op Diagnosis Right knee posttraumatic osteoarthritis. Post-op Diagnosis Same Procedure Performed Calipered, kinematically aligned total knee replacement right knee. Surgeon Amaury Khan MD Training Engineer Karlene Arciniega PA-C Anesthesia General Indications Progressive degenerative changes status post ACL reconstruction. Findings According to the calipered kinematic alignment principles, the knee was balanced by the following verification checks incorporating 6 caliper measurements, using an insert goniometer to select the insert thickness, and adjusting the tibial resection following the kinematic alignment algorithm (see figure 160.10 published in [employer] chapter on kinematic alignment total knee arthroplasty.) The steps verified the femoral and tibial components were kinematically aligned coincident to the patient's pre arthritic joint lines, which closely restored the [place] tibial compartment forces and ligament laxities without ligament release. The [employer] Synacor[employer] SperiKA knee, designed specifically for kinematic alignment, fit optimally. The record of verification checks were documented and scanned into the chart. Distal Femoral Resection: Distal Medial 8 mm, Distal Lateral 8 mm Target thickness of 8mm Unworn. Posterior Femoral Resection: Posterior Medial 7 mm., Posterior Lateral 7 mm. Target thickness of 7mm Unworn. Central tibia bony changes consistent with history of ACL reconstruction. The ACL was incompetent. There was significant synovitis diffusely. The PCL was released off of the posterior tibia. Scattered cartilage wear, primarily on posterior medial chamfer area and the patella. Description of Procedure General anesthesia was administered. A well-padded tourniquet was placed high on the thigh. The limb was prepped and draped in the usual sterile fashion. The limb was exsanguinated and the tourniquet inflated to 300 mmHg. A longitudinal incision was created over the midline of the knee. Sharp dissection was taken through subcutaneous tissues. Electrocautery was used for hemostasis. A trivector approach to the knee joint was performed. The ACL, anterior horns of the menisci, and fat pad were excised, and a subperiosteal dissection was carried along the posterior medial border of the tibia. The thickness of the [place] patella was measured with a caliper. The patella was resected using the oscillating saw. The best fitting anatomic patella button was selected. The fixation holes were drilled. When the patella and patella buttons combined thickness was thicker than the [place] patella, the patella was recut. Starting midway between the top of the notch in the anterior femoral cortex, I drilled a 9 mm diameter hole parallel to the anterior cortex to minimize flexion of the femoral component and promote patella tracking. I verified the existence of a 5-10 mm bone bridge between the posterior aspect of the hole and the anterior limit of the intercondylar notch. An intraosseous positioning lizeth was inserted 10 cm into the femur perpendicular to the distal joint line and parallel to the anterior cortex. I used a distal femoral referencing guide that compensated 2 mm when the cartilage was worn on the distal medial femoral condyle, and 2 mm when the cartilage was worn on the distal lateral femoral condyle. The basis for setting the distal and posterior femoral resection guide is knowing that the varus and valgus grade II to IV Kellegren-Vinh osteoarthritic knees have negligible bone wear at 0? and 90? and that the mean full-thickness cartilage wear approximates 2 mm. I measured the thickness of distal femoral resections with a caliper to +/- 0.5 mm. The thickness of each resection was adjusted to match the thickness of the respective condyle of the femoral component within 0.5 mm of target after compensating for cartilage wear and kerf. When the distal resection was
[2024-01-31] MEDS: fentaNYL CITRATE INJ (*CRX) 100 MCG/2 ML VIAL 25 MCG IV PUSH ×4 (14:44→14:55)
[2024-01-31] MEDS: HYDROmorphone HCL INJ (*CRX) 1 MG/ML SYR 0.5 MG IV PUSH ×2 (15:16→15:27)
--- NOTE | 2024-01-31 16:15 | ADMGEN ---
This patient, Annabel Hatch, was admitted to [facility] Surg Room 313-01. Patient/family oriented to hospital policies and general routines including ID bracelet, bed and alarms, visiting hours, pain management, procedures, bathroom and other care routines, personal items, smoking policy, room service/diet, and visiting hours. Information on how to activate the Rapid Response Team has been discussed. Patient/Family are encouraged to report perceived risks to care and to ask questions if they do not understand what they are told or what they should do.
[2024-01-31] MEDS: ACETAMINOPHEN 325 MG TABLET 650 MG PO ×2 (18:03→23:47)
[2024-01-31] MEDS: MELOXICAM 7.5 MG TABLET PO (18:03)
[2024-01-31] MEDS: predniSONE 5 MG TABLET PO (18:03)
[2024-01-31] MEDS: SENNA/DOCUSATE SODIUM TABLET 2 TAB PO (18:03)
[2024-01-31] MEDS: FAMOTIDINE 20 MG TABLET PO (20:22)
[2024-01-31] MEDS: ASPIRIN 81 MG ENTERIC TABLET PO (20:22)
[2024-01-31] MEDS: oxyCODONE/ACETAMINOPHEN (*CRX) 10-325 MG TABLET 1 TAB PO (20:22)
[2024-01-31] MEDS: HYDROmorphone HCL INJ (*CRX) 1 MG/ML SYR IV PUSH (23:48)
[2024-02-01 01:14] VITALS: BP 161/82; PULSE 97; RESP 16; TEMP 36.4; O2SAT 100
[2024-02-01] MEDS: diphenhydrAMINE HCl INJ 50 MG/ML VIAL 25 MG IV PUSH (01:57)
[2024-02-01] MEDS: ceFAZolin 2 GM/D5W 50 ML 2 GM/50 ML BAG IVPB ×2 (04:56→11:21)
[2024-02-01 05:07] VITALS: BP 136/79; PULSE 81; RESP 18; TEMP 36.4; O2SAT 99
[2024-02-01 06:10] LABS: Basophils Percent Auto 0.2 % (0.2-1.2); Hematocrit 39.3 % (37.0-47.0); Hemoglobin 12.9 g/dL (12.0-15.0); Immature Granulocyte Absolute 0.09 K/mm3 (0.00-0.031); Immature Granulocyte Percent A 0.5 % (0-0.5); Lymphocytes Absolute Auto 0.86 K/mm3 (0.9-3.2); Mean Corpuscular HGB Conc 32.8 g/dl (32-36); Mean Corpuscular Hemoglobin 29.9 pg (26-34); Mean Corpuscular Volume 91.2 fl (80-100); Mean Platelet Volume 11.6 fl (7.4-10.4); Monocytes Percent Auto 5.8 % (2.6-8.5); Neutrophils Absolute Auto 15.2 K/mm3 (1.3-6.7); Neutrophils Percent Auto 88.5 % (45.5-73.1); Platelet Count Result 234 k/mm3 (150-375); Red Blood Count 4.31 M/mm3 (4.2-5.4); Red Cell Distribution Width 12.6 % (11.5-14.5); White Blood Count 17.2 K/mm3 (4.5-10.0)
[2024-02-01 06:24] LABS: Anion Gap 8 mmol/L (4-12); Blood Urea Nitrogen 13 mg/dL (7-17); Calcium 8.3 mg/dL (8.4-10.2); Carbon Dioxide 23 mmol/L (22-30); Chloride 99 mmol/L (98-107); Estimated CRCL calculation 76 ml/min; Estimated Glomerular Filt Rate > 60; Glucose 159 mg/dL (65-110); Potassium 4.3 mmol/L (3.4-5.0); Sodium 130 mmol/L (137-145)
[2024-02-01] MEDS: PANTOPRAZOLE 40 MG TABLET PO (08:13)
[2024-02-01] MEDS: SENNA/DOCUSATE SODIUM TABLET 2 TAB PO (08:13)
[2024-02-01] MEDS: LOSARTAN POTASSIUM 50 MG TABLET PO (08:13)
[2024-02-01] MEDS: polyethylene glycoL 3350 17 GM POWD.PACK PO (08:14)
[2024-02-01] MEDS: ASPIRIN 81 MG ENTERIC TABLET PO (08:14)
[2024-02-01] MEDS: MELOXICAM 7.5 MG TABLET PO (08:14)
[2024-02-01] MEDS: FAMOTIDINE 20 MG TABLET PO (08:14)
[2024-02-01] MEDS: oxyCODONE/ACETAMINOPHEN (*CRX) 10-325 MG TABLET 1 TAB PO (08:18)
[2024-02-01 09:31] VITALS: BP 140/72; PULSE 68; RESP 20; TEMP 36.9; O2SAT 99
--- NOTE | 2024-02-01 09:35 | PM.DS ---
DS: Admitting Diagnosis Discharge Date 02/01/24 Admitting Diagnosis OA knee Right DS: Discharge Diagnosis Discharge Diagnosis (1) Status post total right knee replacement: Code(s): Z96.651 - Presence of right artificial knee joint Status: Acute Assessment and Plan: Postop day 1: Right total knee arthroplasty. Patient tolerated procedure well. No complications. Pain manageable with pain medication. No numbness or tingling. We had a lengthy discussion regarding postoperative wound care, limitations, expectations, and exercises. Patient shows good understanding. She has had initial physical therapy and is tolerating it well. DVT prophylaxis: 81 mg baby aspirin b.i.d. for 14 days. Pain medication: Percocet. Patient has followup appointment with Dr. Khan in 3 weeks. DS: Summary Hospital Course Reason for hospitalization: Total knee arthroplasty Hospital Course: Patient tolerated procedure well. Has had initial PT/OT. Status at Discharge Functional status at discharge: uses cane/walker Overall status at discharge: patient is progressing back to baseline Time Spent with Patient Time attestation: Total time spent providing and/or coordinating discharge services: Exam Narrative: 68 y/o overweight female. Resting comfortably in bed. Wearing compression socks bilaterally. Dressing intact with no drainage. Moderate swelling. Small area of ecchymosis. No erythema. No hematoma. Range of motion limited due to pain. 3-90 Calf nontender. Neurologic status intact. No varicosities. Distal pulses palpable. DS: Data Data Completed and Pending Labs on day of discharge: Labs from last 24 hours 02/01/24 01/31/24 05:21 10:38 WBC 17.2 H RBC 4.31 Hgb 12.9 Hct 39.3 MCV 91.2 MCH 29.9 MCHC 32.8 RDW 12.6 Plt Count 234 MPV 11.6 H Immature Gran % (Auto) 0.5 Neut % (Auto) 88.5 H Lymph % (Auto) 5.0 L Nelson % (Auto) 5.8 Eos % (Auto) 0.0 Baso % (Auto) 0.2 Lymph # (Auto) 0.86 L Nelson # (Auto) 1.0 H Eos # (Auto) 0.0 Baso # (Auto) 0.0 Abs Immat Gran (auto) 0.09 H Absolute Neuts (auto) 15.2 H Absolute Nucleated RBC 0.000 Nucleated RBC % 0.0 Sodium 130 L Potassium 4.3 Chloride 99 Carbon Dioxide 23 Anion Gap 8 BUN 13 D Creatinine 0.70 Estim Creat Clear Calc 76 Estimated GFR > 60 Glucose 159 H Calcium 8.3 L Blood Type O Negative Antibody Screen Negative Discharge Plan Discharge Patient Disposition: Home, Self-Care Discharge Instructions: See green instruction sheets Stand Alone Forms: General Discharge Instructions Follow-up/Referrals: Karlene Arciniega PA [Physician Print Binding Worker] - Discharge Medications: New meloxicam 15 mg tablet 15 mg PO DAILY Qty: 30 0RF Rx Instructions: Cut in half. Take 1/2 in morning and 1/2 at night. Take with food. Stop if stomach upset. prednisone 5 mg tablet 5 mg PO DAILY 21 Days Qty: 21 0RF aspirin 81 mg tablet,delayed release (DR/EC) 81 mg PO BID 14 Days Qty: 28 0RF oxycodone-acetaminophen 5-325 mg tablet 1 - 2 tablet PO Q4-6H PRN (Reason: pain) 7 Days Qty: 30 0RF Continued pantoprazole 40 mg tablet,delayed release (DR/EC) 40 mg PO QAM losartan 50 mg tablet 50 mg PO DAILY Patient Comments: QAM biotin 5,000 mcg Tablet,Disintegrating 5,000 mcg PO DAILY Clarinex-D 12 HOUR 2.5-120 mg Tablet, Er Multiphase 12 Hr 1 tablet PO Q12H PRN (Reason: Allergy Symptoms) cyclobenzaprine 10 mg tablet 10 mg PO HS PRN (Reason: Muscle Spasm) cyanocobalamin (vitamin B-12) 1,000 mcg/mL Solution 1,000 mcg IM MONTHLY ergocalciferol (vitamin D2) 1,250 mcg (50,000 unit) capsule 1,250 mcg PO WEEKLY Patient Comments: FRIDAYS azelastine 137 mcg (0.1 %) spray,non-aerosol 1 spray INTRANASAL BID PRN (Reason: Nasal Congestion) albuterol (refill) 90 mcg/actuation Aerosol 90 m
== END 2024-02-01 11:50 | disposition home or self-care (01) ==
LOC: ANHSURGERY 10:01 → ANH3MEDSUR 15:57
PROVIDERS: Physician Assistant Surgical; PCP Internal Medicine Infectious Disease; Visit Provider Orthopaedic Surgery
PROC: (CPT 27447; principal; 2024-01-31 12:00)
DX: M17.11 Unilateral primary osteoarthritis, right knee (principal); M25.761 Osteophyte, right knee; I10 Essential (primary) hypertension; J45.909 Unspecified asthma, uncomplicated; E66.9 Obesity, unspecified; Z68.33 Body mass index [BMI] 33.0-33.9, adult; Z79.82 Long term (current) use of aspirin; Z79.51 Long term (current) use of inhaled steroids; Z79.52 Long term (current) use of systemic steroids; Z79.891 Long term (current) use of opiate analgesic; Z98.890 Other specified postprocedural states; Z87.891 Personal history of nicotine dependence; Z85.3 Personal history of malignant neoplasm of breast
CPT/HCPCS: 27447; 36415; 73560; 80048; 85025; 86850; 86900; 86901; 97110; 97161; 97165; 97530; C1776; A9270; C1713; J0171; J0330; J0690; J1100; J1171; J1200; J2003; J2250; J2270; J2405; J2704; J2795; J3010; J7030; J7120; J7512